=== PATIENT | female | born 1980 | race Caucasian/White ===

== ENCOUNTER 2017-02-21 07:41 | Emergency (ER) | payer OTHER ==
[~2017-02-21] VITALS: Ht 175.3 cm; Wt 84.5 kg
[2017-02-21 07:42] VITALS: BP 123/79
[2017-02-21] MEDS ORDERED: SILVER SULF. CRM 1%, 50GM TP ONE (08:30)
[2017-02-21] MEDS ORDERED: SILVER SULF. CRM 1% , 25GM ONE (08:35)
== END 2017-02-21 08:48 | disposition home or self-care (01) ==
LOC: ED 08:20
DX: L55.0 Sunburn of first degree (principal)
CPT/HCPCS: 99283